=== PATIENT | female | born 1965 | race Hispanic/Latino ===

== ENCOUNTER → 2024-07-31 | Outpatient (REF) | payer MEDICARE | LOC: MRI 08:36 | PROVIDERS: ATTEND Family Medicine | DX: G91.2 (Idiopathic) normal pressure hydrocephalus (principal) | CPT/HCPCS: 70551 ==

== ENCOUNTER 2024-10-17 18:11 | Inpatient (IN) | payer MEDICARE ==
[~2024-10-17] VITALS: Ht 185.4 cm; Wt 102.1 kg
[2024-10-17 18:45] VITALS: RESP 20; TEMP 97
[2024-10-17 19:03] LABS: BASOPHILS % 0.0 % (0.0-1.0); EOSINOPHILS % 0.0 % (0.0-6.0); LYMPHOCYTES % 24.3 % (18.0-39.1); MONOCYTES % 6.1 % (4.4-11.3); NEUTROPHILS % 69.4 % (38.7-80.0); RED CELL DISTRIBUTION WIDTH 13.5 % (11.7-14.4)
[2024-10-17 19:17] LABS: INR 0.95
[2024-10-17] MEDS: SODIUM CHLORIDE 0.9% 1000ML 1,000 ML IV STA (19:18)
[2024-10-17 19:28] LABS: EST GLOMERULAR FILTRATION RATE 72.0 ML/MIN (>=60)
[2024-10-17] MEDS: ACETAMINOPHEN 325 MG TAB PO STA (19:29)
[2024-10-17 19:48] LABS: CORONAVIRUS COVID-19 AG NEGATIVE (NEGATIVE)
[2024-10-17] MEDS: METOCLOPRAMIDE HCL 10 MG/2ML VIAL IV STA (22:55)
[2024-10-18] VITALS (7 sets, daily range): BP systolic 103–112; BP diastolic 51–79; PULSE 59–70; RESP 18–20; TEMP 97.7–98; O2SAT 97–100
[2024-10-18] MEDS ORDERED: DEXTROSE 50% SYRINGE 50 ML IV PRN (00:15)
[2024-10-18] MEDS: DEXTROSE 50% SYRINGE 50 ML IV STA (01:29)
[2024-10-18] MEDS: ONDANSETRON HCL INJ 2MG/ML 2ML 2 MG/ML VIAL IV PRN (03:34)
[2024-10-18] MEDS: Morphine 4mg INJECTION 4 MG/ML INJ IV PRN (03:35)
[2024-10-18] MEDS ORDERED: PANTOPRAZOLE SO40 MG PO (04:09)
[2024-10-18] MEDS ORDERED: CILOSTAZOL50 MG PO (04:09)
[2024-10-18] MEDS ORDERED: LEVOTHYROXINE25 MCG PO (04:09)
[2024-10-18] MEDS ORDERED: CREON DR 36,001 EACH PO (04:09)
[2024-10-18] MEDS ORDERED: GABAPENTIN600 MG PO (04:09)
[2024-10-18] MEDS ORDERED: OMEGA-3 ACID ETH1 GM PO (04:09)
[2024-10-18] MEDS ORDERED: AMITRIPTYLINE H50 MG PO (04:09)
[2024-10-18] MEDS ORDERED: HYDROXYZINE HCL25 MG PO (04:09)
[2024-10-18] MEDS ORDERED: METFORMIN HCL1000 MG PO (04:09)
[2024-10-18] MEDS ORDERED: HYDROCODON-ACE1 EAC9 PO (04:09)
[2024-10-18] MEDS ORDERED: TIZANIDINE HCL4 MG PO (04:09)
[2024-10-18] MEDS: INSULIN REGULAR, HUMAN 100 UNIT/1 ML SQ SCH (07:30)
[2024-10-18] MEDS ORDERED: IOPAMIDOL 370 MG/ML 100 ML INFUS..BTL INJ ONE (09:18)
[2024-10-18] MEDS ORDERED: SODIUM CHLORIDE 0.9% 100 ML ONE (09:18)
[2024-10-18] MEDS: HYDROCODONE/APAP 10MG-325MG TAB PO PRN (12:34)
[2024-10-19 00:49] VITALS: BP 101/59; PULSE 70; RESP 16; TEMP 97.8; O2SAT 100
[2024-10-19 06:22] LABS: BASOPHILS % 0.2 % (0.0-1.0); EOSINOPHILS % 0.0 % (0.0-6.0); LYMPHOCYTES % 21.3 % (18.0-39.1); MONOCYTES % 9.8 % (4.4-11.3); NEUTROPHILS % 68.5 % (38.7-80.0); RED CELL DISTRIBUTION WIDTH 13.4 % (11.7-14.4)
[2024-10-19 06:45] LABS: EST GLOMERULAR FILTRATION RATE 84.0 ML/MIN (>=60)
[2024-10-19 09:00] VITALS: BP 101/59; PULSE 70; RESP 16; TEMP 97.8; O2SAT 100
[2024-10-19 09:15] VITALS: BP 113/65; PULSE 64; RESP 20; TEMP 97.7; O2SAT 100
[2024-10-19] MEDS: PROCHLORPERAZINE EDISYLATE 5 MG/ML VIAL IV SCH (12:04)
[2024-10-19 12:58] VITALS: BP 108/76; PULSE 75; RESP 20; TEMP 97.9; O2SAT 97
[2024-10-19] MEDS ORDERED: ONDANSETRON ODT4 MG PO (13:10)
[2024-10-19] MEDS ORDERED: TOPAMAX25 MG PO (13:55)
[2024-10-19] MEDS: TOPIRAMATE 25 MG TAB PO SCH (14:00)
== END 2024-10-19 15:30 | disposition home or self-care (01) | DRG 103 ==
LOC: ER 18:21 → ERHOLD 10-18 00:12 → MED/SURG2 10-18 04:30
PROVIDERS: ADMIT Internal Medicine; ATTEND Internal Medicine
DX: G43.909 Migraine, unspecified, not intractable, without status migrainosus (principal); I10 Essential (primary) hypertension; E11.65 Type 2 diabetes mellitus with hyperglycemia; E03.9 Hypothyroidism, unspecified; I95.9 Hypotension, unspecified; G47.00 Insomnia, unspecified; M54.50 Low back pain, unspecified; G89.29 Other chronic pain; G93.89 Other specified disorders of brain; E11.40 Type 2 diabetes mellitus with diabetic neuropathy, unspecified; Z11.52 Encounter for screening for COVID-19; Z79.84 Long term (current) use of oral hypoglycemic drugs; Z79.890 Hormone replacement therapy; Z85.42 Personal history of malignant neoplasm of other parts of uterus
CPT/HCPCS: 36415; 70496; 70498; 70551; 71045; 80053; 82550; 82948; 83690; 83880; 84484; 85025; 85610; 93005; 95812; 99284; J2270; J2405; J2765; J7030; J7050; J7799; Q9967

== ENCOUNTER → 2024-12-12 | Day surgery (SDC) | payer MEDICARE ==
[2024-12-07 13:36] LABS: BASOPHILS % 0.0 % (0.0-1.0); EOSINOPHILS % 0.0 % (0.0-6.0); LYMPHOCYTES % 24.1 % (18.0-39.1); MONOCYTES % 6.6 % (4.4-11.3); NEUTROPHILS % 69.0 % (38.7-80.0); RED CELL DISTRIBUTION WIDTH 14.1 % (11.7-14.4)
[~2024-12-12] MED LIST: AMITRIPTYLINE H50 MG PO; BOTOX100 UNIT SC; CILOSTAZOL50 MG PO; CREON DR 36,001 EACH PO; FENTANYL CITRATE/PF 100MCG/2 ML INJ ONE; GABAPENTIN600 MG PO; HUMALOG100 UNIT/3 SC; HYDROCODON-ACE1 EAC9 PO; HYDROXYZINE HCL25 MG PO; LACTATED RINGER'S 1,000 ML ONE; LEVOTHYROXINE25 MCG PO; LIDOCAINE HCL 2% LOCAL INJ 5 ML SDV VIAL INJ ONE; LYRICA100 MG PO; METFORMIN HCL1000 MG PO; MOUNJARO7.5 MG/0.5 SC; OMEGA-3 ACID ETH1 GM PO; ONDANSETRON ODT4 MG PO; PANTOPRAZOLE SO40 MG PO; PROPOFOL IV EMULSION 10 MG/ML 20 ML VIAL ONE; TIZANIDINE HCL4 MG PO; TOPAMAX25 MG PO; TOUJEO SOL300 UNIT/1 SC
[2024-12-12 17:07] VITALS: TEMP 97.3
[2024-12-12 17:35] VITALS: BP 131/88; PULSE 84; RESP 16; O2SAT 98
== END | disposition home or self-care (01) ==
LOC: OR 13:26
PROVIDERS: ATTEND Internal Medicine Gastroenterology
DX: K22.2 Esophageal obstruction (principal); Z86.0100 Personal history of colon polyps, unspecified; K31.89 Other diseases of stomach and duodenum; K20.90 Esophagitis, unspecified without bleeding; K44.9 Diaphragmatic hernia without obstruction or gangrene; K21.9 Gastro-esophageal reflux disease without esophagitis; K64.8 Other hemorrhoids; Z98.84 Bariatric surgery status; E11.9 Type 2 diabetes mellitus without complications; Z71.89 Other specified counseling; E03.9 Hypothyroidism, unspecified; M19.90 Unspecified osteoarthritis, unspecified site; Z01.810 Encounter for preprocedural cardiovascular examination; Z01.812 Encounter for preprocedural laboratory examination; Z79.84 Long term (current) use of oral hypoglycemic drugs; Z79.85 Long-term (current) use of injectable non-insulin antidiabetic drugs; Z79.4 Long term (current) use of insulin; Z79.899 Other long term (current) drug therapy; Z68.29 Body mass index [BMI] 29.0-29.9, adult; Z71.3 Dietary counseling and surveillance; Z80.0 Family history of malignant neoplasm of digestive organs
CPT/HCPCS: 36415; 43239; 43450; 45378; 82948; 85025; 93005; J2003; J2470